=== PATIENT | male | born 1955 | race Caucasian/White ===

== ENCOUNTER 2020-04-21 05:23 | Emergency (ER) | payer MEDICAID, SELFPAY ==
[2020-04-21 05:24] VITALS: BP 152/84; PULSE 109; RESP 35; TEMP 36.7; O2SAT 95; BMI 16.0
--- NOTE | 2020-04-21 05:29 | EKG12_ITS ---
Test Reason : Blood Pressure : / mmHG Vent. Rate : 091 BPM Atrial Rate : 091 BPM P-R Int : 128 ms QRS Dur : 092 ms QT Int : 390 ms P-R-T Axes : 042 068 066 degrees QTc Int : 479 ms Normal sinus rhythm Normal ECG Confirmed by MITCH RICO, FRANCI ([id number]), industrial editor CARLOS ENRIQUE LACY ([id number]) on 04/26/2020 1:00:16 PM Referred By: JUAN JOSE Confirmed By:FRANCI MEYER MD
--- NOTE | 2020-04-21 05:29 | ED.VIS.GEN ---
History of Present Illness Chief Complaint: Shortness of Breath Informant: Patient Narrative: Stated he woke up an hour ago and was laying on his back. He experienced shortness of breath. He stated it is common for him to have this. Normally he lays on his side. He does smoke cigarettes. History of end-stage COPD and emphysema. He is not on home oxygen. He has not had a new cough but has a chronic cough that is dry. No fevers or chills. No coronavirus exposures. EMS was called due to his shortness of breath. He was 90% on room air at that time. He was placed on oxygen and brought here. He does have an inhaler at home. He did use 2 puffs prior to calling EMS with moderate relief. Current severity is moderate. He has had this happen multiple times in the past. He stated he felt fine before bed. Past Medical History - Allergies and Home Meds Allergies/Adverse Reactions: Allergies celecoxib [From Celebrex] Allergy (Verified 08/24/16 16:05) Other Primary Care Physician: Cali Dickinson MD [Primary Care Provider] - Prior records reviewed: Yes Past Medical History: - - COPD emphysema Surgical History: - - Reviewed Smoking Status: Light Smoker (<10/day) Alcohol: None Drugs: None Review of Systems General: Denies: Chills, Fever, Sweats Eyes: Denies: Visual changes - bilaterally, Diplopia ENT: Denies: Rhinorrhea, Sore throat Cardiovascular: Denies: Chest pain, Palpitations Respiratory: Reports: Dyspnea. Denies: Cough, Dyspnea on exertion Gastrointestinal: Denies: Abdominal pain, Nausea, Vomiting, Diarrhea, Melena, Hematochezia Genitourinary: Denies: Dysuria, Hematuria, Frequency Musculoskeletal: Denies: Back pain, Extremity Pain Skin: Denies: Rash, Wounds Neurological: Denies: Headache, Weakness, Numbness Physical Exam Vital Signs/Narrative: Vital Signs Temp Pulse Resp BP Pulse Ox 04/21/20 05:24 98.1 F 109 H 35 H 152/84 H 95 General: Well nourished, Well developed, No Acute Distress Head: Normocephalic, Atraumatic Eyes: Perrl, EOMI ENT: Moist mucous membranes, No rhinorrhea Neck: Supple, Nontender Cardiovascular: Regular rate, Regular rhythm, No murmurs Respiratory: Chest nontender, Wheezing - Fuhs wheezing expiratory throughout all lung tejeda, Diminished, Decreased Air Movement. Negative for: Retractions Abdomen: Soft, Nontender, Nondistended, Normal bowel sounds Back: Nontender, Normal Inspection Extremities: Nontender, No edema Skin: Normal color, No rash Neurological: Alert, Oriented x3, Cranial nerves II-XII grossly intact, Normal Strength, Normal Sensation Psychological: Normal affect, Normal Mood Diagnostic/Tx/Re-eval - Medical Decision Making Placed on oxygen. Given albuterol breathing treatment x3 and Atrovent breathing treatment x1. EKG and chest x-ray obtained.. Chest x-ray shows chronic emphysematous COPD changes. No focal infiltrates. EKG shows sinus rhythm at a rate of 91 with no acute ischemia or arrhythmia. On reevaluation his wheezing has resolved he is resting comfortably. I suspect he had acute bronchospasm tonight on top of chronic COPD. Given a prescription for albuterol nebulizer and albuterol liquid to use at home as well as a short course of prednisone. He has a rescue inhaler to use as needed. I do not feel he needs antibiotics as this was acute bronchospastic event started an hour ago ED Disposition - Plan for ED Patient: Disposition: Home or Assisted Living Diagnosis: Acute bronchospasm, COPD (chronic obstructive pulmonary disease) Instructions: ED COPD Flare Prescriptions: predniSONE tablet 60 mg PO DAILY #15 tab Prescription Printed Albuterol Aerosols [Ventolin Aerosols] 2.5 mg INHALATION Q4H PRN #25 vial Prescription Printed Referrals: Cali Dickinson MD [Primary Care Provider] -
[2020-04-21 05:30] VITALS: O2SAT 98
[2020-04-21] MEDS: Ipratropium/Albuterol Sulfate 3 ML AMPUL.NEB INHALATION (05:44)
[2020-04-21] MEDS: Albuterol 2.5 MG/3 ML VIAL.NEB. INHALATION ×3 (05:44→05:55)
[2020-04-21 05:45] VITALS: PULSE 95; RESP 18; O2SAT 98
[2020-04-21 05:56] VITALS: PULSE 92; RESP 15
--- NOTE | 2020-04-21 06:19 | RAD_ITS ---
STUDY: X-RAY CHEST REASON FOR EXAM: Male, 64 years old. Shortness of breath TECHNIQUE: Frontal view COMPARISON: 08/13/2013 FINDINGS: There is advanced COPD. There are NO infiltrates. There is no demonstrated pleural abnormality. Normal size heart. Normal mediastinum and denis. Normal visualized pulmonary arteries. Normal visualized aortic arch and descending thoracic aorta. Normal visualized thoracic spine. Normal visualized ribs, clavicles, and shoulders. There is no demonstrated abnormality of the visualized soft tissue structures of the upper abdomen. RAD/Chest 1 View (Portable) IMPRESSION: There is advanced COPD. There are NO infiltrates. There is no demonstrated pleural abnormality. Normal size heart. Electronically Signed: Jr June MD at 6:44 EDT , Service support ,
[2020-04-21] MEDS: predniSONE 20 MG Tablet 60 MG PO (06:44)
[2020-04-21 06:50] VITALS: BP 126/78; PULSE 78; RESP 18; O2SAT 98
== END 2020-04-21 06:51 | disposition home or self-care (01) ==
PROVIDERS: Emergency Provider Emergency Medicine; PCP Family Medicine
DX: J98.01 Acute bronchospasm (principal); J44.9 Chronic obstructive pulmonary disease, unspecified; F17.210 Nicotine dependence, cigarettes, uncomplicated; Z88.6 Allergy status to analgesic agent
CPT/HCPCS: 71045; 93005; 94640; 99251; 99285; G0463

== ENCOUNTER 2021-01-12 05:30 | Inpatient (IN) | payer MEDICAID, SELFPAY ==
[2021-01-12] VITALS (40 sets, daily range): BP systolic 39–173; BP diastolic 26–149; PULSE 67–128; RESP 12–40; TEMP 35.6–36.7; O2SAT 64–100; BMI 16.8; BMI 14.3
--- NOTE | 2021-01-12 05:31 | EKG12_ITS ---
Test Reason : SOB Blood Pressure : / mmHG Vent. Rate : 113 BPM Atrial Rate : 113 BPM P-R Int : 122 ms QRS Dur : 088 ms QT Int : 320 ms P-R-T Axes : 056 077 044 degrees QTc Int : 438 ms Sinus tachycardia Possible Lateral infarct , age undetermined Abnormal ECG Confirmed by MITCH RICO, FRANCI ([id number]), editorial writer CARLOS ENRIQUE LACY ([id number]) on 01/15/2021 2:43:52 PM Referred By: WAQAS Confirmed By:FRANCI MEYER MD
--- NOTE | 2021-01-12 05:31 | RAD_ITS ---
HISTORY: sob EXAM: XR Chest 1 View: COMPARISON: April 21, 2020 FINDINGS: # of images incl. paperwork: 1 Pulmonary hyperexpansion. This is consistent with pulmonary emphysema with a posterior peripheral parenchymal pulmonary perfusion. Basilar airspace disease is fairly severe in the left lower lobe with obscuration of the left heart border and the left hemidiaphragm. This is new Heart is not enlarged. No acute osseous pathology perceived. Pulmonary vascularity is distinct. Likely small bilateral pleural effusions. RAD/Chest 1 View (Portable) IMPRESSION: Pulmonary emphysema. New left lower lobe airspace disease with pleural effusions consistent with pneumonia. Underlying malignancy is not excluded.. at 0609 Reported and signed by: Ulises Gunn MD Electronically Signed: Ulises Gunn MD at 6:08 EST Tel , Service support ,
--- NOTE | 2021-01-12 05:32 | ED.DCSUM_ITS ---
History of Present Illness Chief Complaint: Shortness of Breath Informant: Patient Onset: Today Context: Gradual Onset Timing: Continuous Current Severity: Severe Maximum Severity: Severe Narrative: Patient is a 65-year-old male with history of COPD who presents to the emergency department shortness of breath. Patient called EMS this morning because he felt like he cannot catch his breath. On EMS arrival, the patient was then rather significant respiratory distress. He was tachypneic with diminished air movement. He was found to be 67% on room air. IV was established in the field. The patient was placed on a nonrebreather and given a DuoNeb treatment, albuterol, and IM epi. On arrival, the patient is still tachypneic but is moving more air. He answers questions in 1-2 word sentences. He denies chest pain. He denies fevers or chills. He has had a scant cough. Prior similar symptoms: Yes Recent Illness/Hospitalization: No Past Medical History - Allergies and Home Meds Allergies/Adverse Reactions: Allergies celecoxib [From Celebrex] Allergy (Verified 01/12/21 05:36) Other Prior records reviewed: Yes Past Medical History: - - COPD Surgical History: - - Reviewed Smoking Status: Light Smoker (<10/day) Review of Systems General: Denies: Chills, Fever, Sweats Eyes: Denies: Visual changes - bilaterally, Diplopia ENT: Denies: Rhinorrhea, Sore throat Cardiovascular: Denies: Chest pain, Palpitations Respiratory: Reports: Dyspnea, Cough. Denies: Dyspnea on exertion Gastrointestinal: Denies: Abdominal pain, Nausea, Vomiting, Diarrhea, Melena, He matochezia Genitourinary: Denies: Dysuria, Hematuria, Frequency Musculoskeletal: Denies: Back pain, Extremity Pain Skin: Denies: Rash, Wounds Neurological: Denies: Headache, Weakness, Numbness Physical Exam Inital Vital Signs reviewed: Yes General: Well nourished, Well developed, No Acute Distress Head: Normocephalic, Atraumatic Eyes: Perrl, EOMI ENT: Moist mucous membranes, No rhinorrhea Neck: Supple, Nontender Cardiovascular: Regular rate, Regular rhythm, No murmurs Respiratory: Chest nontender, Wheezing, Decreased Air Movement, Retractions Abdomen: Soft, Nontender, Nondistended, Normal bowel sounds Back: Nontender, Normal Inspection Extremities: Nontender, No edema Skin: Normal color, No rash Neurological: Alert, Oriented x3, Cranial nerves II-XII grossly intact, Normal Strength, Normal Sensation Psychological: Normal affect, Normal Mood Diagnostic/Tx/Re-eval Clinical Impression(s) from Imaging Studies Chest X-Ray 01/12/21 05:31 IMPRESSION: Pulmonary emphysema. New left lower lobe airspace disease with pleural effusions consistent with pneumonia. Underlying malignancy is not excluded.. at 0609 Reported and signed by: Ulises Gunn MD Electronically Signed: Ulises Gunn MD at 6:08 EST Tel , Service support , Abnormal Lab Results 01/12/21 01/12/21 01/12/21 05:36 05:36 05:36 WBC 15.1 H RBC 4.83 Hgb 15.0 Hct 45.4 MCV 94.0 MCH 31.1 MCHC 33.0 RDW Std Deviation 53.3 H RDW Coeff of Milvia 15.4 H Plt Count 307 MPV 10.3 Immature Gran % (Auto) 0.300 Neut % (Auto) 92.4 H Lymph % (Auto) 3.3 L Duval % (Auto) 3.8 Eos % (Auto) 0.1 Baso % (Auto) 0.1 Absolute Neuts (auto) 14.0 H Absolute Lymphs (auto) 0.50 L Nucleated RBC % 0 Differential Comment SCANNED Sodium 135 L Potassium 4.4 Chloride 98 Carbon Dioxide 23.0 Anion Gap 14 BUN 75 H Creatinine 4.25 H Estim Creat Clear Calc 12.84 Est GFR (MDRD) Af Amer 18 L Est GFR (MDRD) Non-Af 15 L BUN/Creatinine Ratio 17.6 Glucose 104 Lactic Acid 2.9 H* Calcium 8.3 L Total Bilirubin 0.70 AST 16 ALT < 6 L Alkaline Phosphatase 123 H Troponin I < 0.015 Total Protein 6.6 Albumin 2.4 L Globulin 4.2 Albumin/Globulin Ratio 0.6 L - Rhythm Strip Rhythm Strip: Sinus Tach Rate: 120 Ectopy: None - EKG Initial EKG Interpretation: No Acute Injury Pattern, Sinus Tachycardia Prior: Unchanged - Medical Decision Making Patient presents with acute respiratory distress. He is diminished air motion and rhonchi in his left base. He was on nonrebreather but was transitioned quickly to BiPAP. With BiPAP and nebulized treatments, the patient's respiratory status did improve. Patient does have leukocytosis, acute kidney injury, lactic acidosis. He was covered with broad-spectrum antibiotics and fluid resuscitated. Chest x-ray was obtained. Was reviewed by both myself and the radiologist. He does have a large left lower lobe infiltrate. I do have concern the may be underlying malignancy and this could be postobstructive. However, given the patient's tenuous respiratory status I did not feel that sending for CT at this time would be of any benefit. The patient's respiratory status continues stabilized with pressure support. I did discuss this with the steel handler and with the hospitalist. He will be admitted at this time. Impression 1. Acute respiratory failure 2. Left lower lobe pneumonia 3. Severe sepsis - Critical Care Time Critical care time (excluding procedures): 30-74 minutes, Discussing w/Patient &/or Family/Clinical Staff Anesthesiologist, Discussing w/Consultants, Arranging Admission or Transfer, Performing Direct Patient Care at Bedside ED Disposition - Plan for ED Patient:
--- NOTE | 2021-01-12 05:38 | ED.RN ---
PLACED ON BIPAP BY RT.
[2021-01-12 05:45] LABS: Basophil# 0.02 X10^3/uL; Basophil% 0.1 % (0-1); Eosinophil# 0.01 X10^3/uL; Eosinophils% 0.1 % (0-5); Hematocrit 45.4 % (40-54); Lymphocyte % 3.3 % (19-41); Mean Corpuscular Hgb 31.1 pg (27.0-32.0); Mean Platelet Vol. 10.3 fl (6.2-12.0); Monocyte# 0.58 X10^3/uL; Monocyte% 3.8 % (0-10); NRBC Flagged by Analyzer 0 % (0-5); Neutrophil # 13.97 X10^3/uL (2.7-7.7); Neutrophil % 92.4 % (47-70); POSITIVE DIFFERENTIAL YES; POSITIVE MORPHOLOGY YES; Platelet Count 307 K/mm3 (150-450); RBC Distribution Width CV 15.4 % (11.6-14.6); RBC Distribution Width SD 53.3 fl (35.1-43.9); Red Blood Count 4.83 M/mm3 (4.6-6.2); White Blood Count 15.1 K/mm3 (4.4-11.0)
[2021-01-12 05:49] LABS: Differential Indicated SCAN CRITERIA MET
[2021-01-12] MEDS: 0.9% Normal Saline 1,000 ML 999 ML IV ×3 (05:59→10:00)
[2021-01-12] MEDS: Albuterol 2.5 MG/3 ML VIAL.NEB. INHALATION ×3 (06:00→06:10)
[2021-01-12 06:04] LABS: ALB/GLOB Ratio 0.6 RATIO (0.9-2.4); AST(SGOT) 16 U/L (15-37); Alanine Aminotransfer ALT/SGPT < 6 U/L (16-61); Albumin, Serum 2.4 g/dL (3.2-5.0); Alkaline Phosphatase 123 U/L (45-117); Anion Gap 14 (5-15); BUN 75 mg/dL (7-18); BUN/Creat Ratio 17.6 RATIO (10-20); Calcium,Total 8.3 mg/dL (8.5-10.1); Chloride 98 mmol/L (98-107); Creatinine, Serum 4.25 mg/dL (0.70-1.30); EST Glomerular Filtration Rate 15 mL/min (>60); Est Glom Filt Rate - Afr Amer 18 mL/min (>60); Estimated Creatinine Clearance 12.84 ml/min; Globulin 4.2 g/dL (2.2-4.2); Glucose 104 mg/dL (74-106); Potassium 4.4 mmol/L (3.5-5.1); Protein, Total 6.6 g/dL (6.4-8.2); Sodium Level 135 mmol/L (136-145)
[2021-01-12 06:14] LABS: Lactic Acid 2.9 mmol/L (0.4-1.9)
[2021-01-12 06:16] LABS: Differential Comment SCANNED
--- NOTE | 2021-01-12 06:23 | PCM.HP.STD ---
Problem List (1) Severe sepsis Status: Acute (2) COPD (chronic obstructive pulmonary disease) Status: Acute (3) MIL (acute kidney injury) Status: Acute History of Present Illness Date of Admission: 01/12/21 Chief Complaint: shortness of breath The patient is a 65 year old M a with history of COPD; and tobacco abuse. Patient is not on home oxygen. The patient has had increasing shortness of breath over the past 3 days. Per his , he has been using his nebulizers and inhalers more frequently. Overnight, he had 2 episodes of emesis. He began to have more shortness of breath. EMS was called. On squad arrival, the patient was 67% on room air with tachypnea. IV was established. He was given Solu-Medrol and nebulized breathing treatments. He was placed on nonrebreather by EMS. In the emergency department, he was transitioned to BiPAP. The patient was given more nebulized breathing treatments. Patient does have leukocytosis, elevated lactic acid, and evidence of elevated creatinine. Chest x-ray showed a left lower lobe infiltrate. The patient was covered with broad-spectrum antibiotics. His rapid Covid antigen was negative. Past Medical History Medical History: Medical History (Last Updated 01/12/21 @ 07:[address] Surja Lee MD) COPD (chronic obstructive pulmonary disease) J44.9 Allergies celecoxib [From Celebrex] Allergy (Verified 01/12/21 05:36) Other Home Medications: Ambulatory Orders Medication Instructions Recorded Loratadine [Claritin] 10 mg PO DAILY 08/13/13 Montelukast [Singulair] 10 mg PO DAILY 08/13/13 Albuterol IH (ProAir) [Proair Hfa 1 puff INHALATION Q6H PRN PRN 08/24/16 (SP)Vent Pts] Budesonide/Formoterol 160/4.5 2 puff INHALATION BID 08/24/16 [Symbicort 160/4.5 Mcg Inhaler (SP)] Fluticasone 0.05% [Flonase Nasal 2 spray NASAL DAILY 08/24/16 [place]] Ibuprofen 600 mg PO 4X/DAY PRN 08/24/16 Ipratropium [Atrovent] 0.25 mg INHALATION 4X/DAY 08/24/16 Naproxen 375 mg PO Q6H PRN PRN 08/24/16 Simvastatin [Zocor] 40 mg PO QHS 08/24/16 cycloBENZAPRine HCl [Flexeril] 10 mg PO TID PRN #20 tablet 08/24/16 Albuterol Aerosols [Ventolin 2.5 mg INHALATION Q4H PRN #25 vial 04/21/20 Aerosols] Surgical History: - - Tympanostomy tube placed in ears Smoking Status: Current every day smoker - said patient quit smoking a day before presentation. Tobacco Use: Cigarettes - *Family History Maternal History Items: Heart Disease, Pulmonary Disease Paternal History Items: COPD Review of Systems Constitutional: Denies: Chills, Fever, Weight Change HEENT: Denies: Head Aches, Sinus Congestion, Sinus Drainage Cardiovascular: Denies: Chest Pain, Palpitations Respiratory: Reports: Cough, Shortness of Breath, Sputum production Gastrointestinal: Reports: Nausea, Vomiting. Denies: Abdominal Pain Genitourinary: Denies: Dysuria Musculoskeletal: Denies: Joint Pain, Joint Tenderness Skin: Denies: Rash, Wounds Neurological: Denies: Numbness, Tingling, Focal weakness Psychiatric: Denies: Anxiety, Depression, Homicidal Ideations, Suicidal Ideations Hematologic/ Lymphatic: Denies: Easy Bruising, Easy Bleeding VTE Information - Inpt Only VTE Present on Admission: No VTE Mechan Device Prophylaxis: None VTE Pharm Prophylaxis ordered?: Yes Patient Problems: Active and Suspected Problems (Last Updated 01/12/21 @ 07:[address] Suraj Lee MD) Severe sepsis (Acute) COPD (chronic obstructive pulmonary disease) (Acute) MIL (acute kidney injury) (Acute) - Physical Exam Vitals/I&O's: Vital Signs Temp Pulse Resp BP Pulse Ox 97.7 F L 111 H 30 H 91/63 96 01/12/21 05:50 01/12/21 06:21 01/12/21 06:21 01/12/21 06:21 01/12/21 06:21 Oxygen Flow Rate (L/min) 30 Oxygen Delivery Method Bi-pap Weight: 51.7 kg Body Mass Index (BMI) 16.8 General: Alert, Oriented x3, Cooperative HEENT: Atraumatic, Normocephalic Neck: Supple, Trachea Midline Lungs: Diminished, Tachypneic, Wheezes Cardiovascular: Regular rate, Normal S1, Normal S2, Tachycardic Abdomen: Bowel Sounds Present, Soft, Non Tender Extremities: No edema, Capillary Refill Less than 3 Seconds Skin: No rashes, No breakdown Musculoskeletal: No Tenderness to Palpation of Joints or Extremities, Cachexia, Muscle Wasting Neurological: Cranial nerves II-XII grossly intact Psych/Mental Status: Anxious Microbiology Past 72 Hours 01/12/21 05:36 Mucosa - Nose SARS-CoV-2 Antigen (Rapid) - Final Laboratory Results 01/12/21 05:36: WBC 15.1 H, RBC 4.83, Hgb 15.0, Hct 45.4, MCV 94.0, MCH 31.1, MCHC 33.0, RDW Std Deviation 53.3 H, RDW Coeff of Milvia 15.4 H, Plt Count 307, MPV 10.3, Immature Gran % (Auto) 0.300, Neut % (Auto) 92.4 H, Lymph % (Auto) 3.3 L, Iron % (Auto) 3.8, Eos % (Auto) 0.1, Baso % (Auto) 0.1, Absolute Neuts (auto) 14.0 H, Absolute Lymphs (auto) 0.50 L, Nucleated RBC % 0, Differential Comment SCANNED 01/12/21 05:36: Sodium 135 L, Potassium 4.4, Chloride 98, Carbon Dioxide 23.0, Anion Gap 14, BUN 75 H, Creatinine 4.25 H, Estim Creat Clear Calc 12.84, Est GFR (MDRD) Af Amer 18 L, Est GFR (MDRD) Non-Af 15 L, BUN/Creatinine Ratio 17.6, Glucose 104, Calcium 8.3 L, Total Bilirubin 0.70, AST 16, ALT < 6 L, Alkaline Phosphatase 123 H, Troponin I < 0.015, Total Protein 6.6, Albumin 2.4 L, Globulin 4.2, Albumin/Globulin Ratio 0.6 L 01/12/21 05:36: Lactic Acid 2.9 H* 01/12/21 05:36: B-Natriuretic Peptide Pending Current Medications Albuterol Sulfate (Albuterol 2.5 Mg/3 Ml Vial.Neb.) 2.5 mg INHALATION Q20M JOVAN Stop: 01/12/21 06:26 Last Admin: 01/12/21 06:10 Dose: 2.5 mg Documented by: Sodium Chloride () 1,000 mls @ 999 mls/hr IV .Q1H1M ONE Stop: 01/12/21 06:54 Last Admin: 01/12/21 05:59 Dose: 999 mls/hr Documented by: Piperacillin Sod/Tazobactam (Sod 2,250 mg/ Sodium Chloride) 61.25 mls @ 100 mls/hr IV X1 ONE Stop: 01/12/21 06:51 Sodium Chloride () 1,000 mls @ 999 mls/hr IV .Q1H1M ONE Stop: 01/12/21 07:11 Vancomycin HCl 750 mg/ Sodium (Chloride) 265 mls @ 250 mls/hr IV X1 ONE Stop: 01/12/21 07:33 Assessment/Plan All Active Problems (Last Updated 01/12/21 @ 07:[address] Suraj Lee MD) Severe sepsis (Acute) COPD (chronic obstructive pulmonary disease) (Acute) MIL (acute kidney injury) (Acute) The patient is a 65 year old M a with history of tobacco abuse; COPD not on home oxygen who presented with increasing shortness of breath over the past 3 days; productive cough; nausea and vomiting; and wheezing was found to be severely hypoxic. Severe sepsis secondary to pneumonia Impression of chest x-ray by radiologist: Pulmonary emphysema. New left lower lobe airspace disease with pleural effusion consistent with pneumonia. Underlying malignancy is not excluded. Actual chest x-ray was independently interpreted. I agree with radiologist interpretation. Respiratory rate in the 30s; heart rates in the 100s. White count of 15.1 with neutrophilic predominance and lymphopenia. Sodium 135. Lactic acid 2.9. Trend lactic acid. Blood culture ?2 is obtained at emergency department. Follow results. Rapid Covid screen is negative. Obtain PCR Covid. Respiratory Gram stain and culture pending Antibiotics: Started on vancomycin and Zosyn at emergency department and continued. IV hydration: Received normal saline bolus at emergency department. Normal saline at maintenance infusion rate ordered. DuoNeb scheduled. Albuterol as needed Legionella antigen screen and Strep antigen ordered Consider further imaging when patient is more stable to rule out cancer. COPD exacerbation Received Solu-Medrol from paramedics. Schedule Solu-Medrol ordered. Trend CBC and BMP. Zofran as needed. Continue BiPAP started in the emergency department. N.p.o. until patient can tolerate coming off BiPAP. Severe protein calorie malnutrition Patient with cachexia and muscle wasting. BMI of 16.8. When patient is more stable consider nutrition supplements. Dietitian consult. Hyponatremia Sodium 135 on presentation. Mild. Like secondary pulmonary disease Treat pneumonia. IV hydration. MIL/dehydration Creatinine of 4.5 on presentation Review of community records showed that in 2019 his creatinine was 0.99 and in 2017 his creatinine is 1.1. BUN is 75. Likely dehydration from insensible water loss from increased work of breathing. Prerenal and trending to intrinsic renal with ATN. Received normal saline bolus at emergency department. Normal saline at maintenance rate ordered. DVT prophylaxis Subcutaneous heparin ordered. Lovenox not ordered since patient has acute kidney injury. Inpatient E&M: [id number] Init Hosp L3
[2021-01-12] MEDS: Ondansetron 4 MG/2 ML Vial IV (06:28)
--- NOTE | 2021-01-12 06:46 | NURSING ---
[id number] dr cade resp failure
[2021-01-12 07:16] LABS: BNP,B-Type NATRIURETIC PEPTIDE 40.2 pg/mL (0-100)
[2021-01-12] MEDS: Haloperidol Lactate 5 MG/ML Vial IV (08:00)
--- NOTE | 2021-01-12 08:46 | PCM.RX.CS ---
Consult Pharmacy has been consulted to manage selected antiobiotic: Vancomycin Type of Consult: New start Suspected Infection: Sepsis, Pneumonia Prior Doses of Antibiotics Received/Current Regimen: 750MG X1 IN E.R. starting at 07:12 today Labs: Sodium 135 mmol/L (136-145) L 01/12/21 05:36 Potassium 4.4 mmol/L (3.5-5.1) 01/12/21 05:36 Chloride 98 mmol/L (98-107) 01/12/21 05:36 Carbon Dioxide 23.0 mmol/L (21.0-32.0) 01/12/21 05:36 Anion Gap 14 (5-15) 01/12/21 05:36 BUN 75 mg/dL (7-18) H 01/12/21 05:36 Creatinine 4.25 mg/dL (0.70-1.30) H 01/12/21 05:36 Est GFR (MDRD) Af Amer 18 mL/min (>60) L 01/12/21 05:36 Est GFR (MDRD) Non-Af 15 mL/min (>60) L 01/12/21 05:36 BUN/Creatinine Ratio 17.6 RATIO (10-20) 01/12/21 05:36 Glucose 104 mg/dL (74-106) 01/12/21 05:36 Microbiology: Microbiology 01/12/21 05:36 Mucosa - Nose SARS-CoV-2 Antigen (Rapid) - Final Weight used for dosin.8 kg Estimated Creatinine Clearance: 12.8ml/min Goal Trough: 15-20 mcg/mL Pharmacy Plan for Drug Dosing: As noted above, the patient received a dose in E.R. today so since the patient's CrCl is <20, no more doses will be needed today. Will order a vanc random level to be drawn tomorrow with AM labs and further dosing will be evaluated at that time. Pharmacy Service will continue to monitor and adjust dosing as required. Follow-Up Labs: Trough Vancomycin - random level Labs to be done on [date and time ordered]: 01/13/21 with AM labs
[2021-01-12] MEDS: 0.9% Normal Saline 1,000 ML 100 ML IV ×2 (09:34→12:00)
--- NOTE | 2021-01-12 09:35 | CON.PCM_ITS ---
Problem List (1) Pneumonia Status: Acute Qualifiers: Pneumonia type: due to unspecified organism Laterality: left Lung location: lower lobe of lung Qualified Code(s): J18.9 - Pneumonia, unspecified organism (2) Acute respiratory failure with hypoxia Status: Acute (3) Severe sepsis Status: Acute (4) COPD (chronic obstructive pulmonary disease) Status: Acute (5) MIL (acute kidney injury) Status: Acute Reason for Consult Date of Consultation: 01/12/21 Reason for Consultation: Respiratory failure History of Present Illness: The patient is a 65 year old M, with past medical history listed below, who presented to [facility] on 01/12/2021 secondary to progressive shortness of breath. Patient reportedly has had progressive shortness of breath over the last week. Discussed with patient's and she stated that 2 days ago he started to get real bad and was not taking much by mouth. EMS was called this morning secondary to his tachypnea and was found to be 67% on room air. Patient's reported that he had attempted using nebulizers frequently without response. EMS had tried a DuoNeb, albuterol and IM epinephrine, but patient continued to have severe conversational dyspnea. Patient had denied any chest pain, fevers or chills. Patient had reported a scant cough. In the ER, patient had a chest x-ray showing significant hyperinflation with a left lower lobe infiltrate. Laboratory work-up showed a leukocytosis of 15.1, hemoglobin of 15, bicarbonate of 23, BUN of 75 and creatinine of 4.25. Lactate was elevated at 2.9. Liver functions were within normal range. Patient was placed on BiPAP therapy with some improvement in respiratory distress. Patient was then transferred to the intensive care unit for further evaluation following antibiotics and fluid resuscitation with 2 L of IV fluids. Since being in the intensive care unit, patient has had some improvement. Patient arrived with a tripod position refusing to lie backwards. Patient was given some Haldol with some improvement. Patient was also switched to AVAPS with some improvement in respiratory effort. Blood pressures have been marginal, but no pressors have been required. Patient is receiving a fluid bolus. Multiple attempts at ABGs have been unsuccessful. Review of systems was partially obtained from the patient, but most information came by calling the . Patient reportedly has had decreased p.o. intake and weight loss over the last 2 to 3 months. Patient did not reported any chest pain, but has always been skinny. Patient's reports they have done everything to try to fat him up without success. No hemoptysis has been reported. Patient was seen by Dr. Bowles approximately 13 years ago. Patient's confirmed the patient's report that he is a DNR Comfort Care arrest without intubation. Review of systems otherwise negative from a constitutional, HEENT, respiratory, cardiovascular, GI, genitourinary, musculoskeletal, skin, neurologic, psychiatric and hematologic system unless stated above. Past Medical History Medical History: Medical History (Last Updated 01/12/21 @ 07:[address] Suraj Lee MD) COPD (chronic obstructive pulmonary disease) J44.9 Allergies celecoxib [From Celebrex] Allergy (Verified 01/12/21 05:36) Other Home Medications: Ambulatory Orders Medication Instructions Recorded Loratadine [Claritin] 10 mg PO DAILY 08/13/13 Montelukast [Singulair] 10 mg PO DAILY 08/13/13 Albuterol IH (ProAir) [Proair Hfa 1 puff INHALATION Q6H PRN PRN 08/24/16 (SP)Vent Pts] Budesonide/Formoterol 160/4.5 2 puff INHALATION BID 08/24/16 [Symbicort 160/4.5 Mcg Inhaler (SP)] Fluticasone 0.05% [Flonase Nasal 2 spray NASAL DAILY 08/24/16 Decherd] Ibuprofen 600 mg PO 4X/DAY PRN 08/24/16 Ipratropium [Atrovent] 0.25 mg INHALATION 4X/DAY 08/24/16 Naproxen 375 mg PO Q6H PRN PRN 08/24/16 Simvastatin [Zocor] 40 mg PO QHS 08/24/16 cycloBENZAPRine HCl [Flexeril] 10 mg PO TID PRN #20 tablet 08/24/16 Albuterol Aerosols [Ventolin 2.5 mg INHALATION Q4H PRN #25 vial 04/21/20 Aerosols] Surgical History: - - Tympanostomy tube placed in ears Smoking Status: Current every day smoker Tobacco Use: Cigarettes - *Family History Maternal History Items: Heart Disease, Pulmonary Disease Paternal History Items: COPD Review of Systems Comment: See HPI Patient Problems: Active and Suspected Problems (Last Updated 01/12/21 @ 07:[address] Suraj Lee MD) Severe sepsis (Acute) COPD (chronic obstructive pulmonary disease) (Acute) MIL (acute kidney injury) (Acute) Objective: All imaging was personally reviewed. Chest x-ray shows an infiltrate in the left lower lobe with significant hyperinflation. There does appear to be a small pleural effusion. No definitive mass is noted. There are no pulmonary function tests or echocardiogram available for review. - Physical Exam Vitals/I&O's: Vital Signs Temp Pulse Resp BP Pulse Ox 35.9 C L 112 H 28 H 87/51 L 94 01/12/21 07:13 01/12/21 08:15 01/12/21 08:15 01/12/21 08:15 01/12/21 08:15 Oxygen Flow Rate (L/min) 40 Oxygen Delivery Method Bi-pap Weight: 51.8 kg Body Mass Index (BMI) 14.3 Intake and Output for Last 24 Hours 01/10/21 01/11/21 01/12/21 23:59 23:59 23:59 Intake Total 2561.25 / 2561.25 Balance 2561.25 / 2561.25 General: Alert, Cooperative, - - Cachectic. Severe conversational dyspnea despite BiPAP therapy. Good BiPAP synchrony. HEENT: Atraumatic, PERRLA, EOMI, Normocephalic, - - Some temporal wasting noted Oral: No Gingival or Mucosal Lesions/ Ulcerations, Dry Mucosa Neck: Supple, No JVD, No Nodes, Trachea Midline Lungs: No rales, Diminished - Severely, Rhonchi - Left base, Wheezes Cardiovascular: Normal S1, Normal S2, No murmurs, No rub noted, No Gallop, T achycardic Abdomen: Bowel Sounds Present, Soft, Non Tender, Non-Distended Extremities: No cyanosis, No edema, Capillary Refill Less than 3 Seconds, Cl ubbing - Stage III Skin: No rashes, No breakdown Musculoskeletal: No Tenderness to Palpation of Joints or Extremities, Cachexia, Muscle Wasting Lymphatic: No Cervical, Supraclavicular, or Inguinal Adenopathy Neurological: Cranial nerves II-XII grossly intact, Neuro grossly intact, Motor Exam 5/5 strength throughout Psych/Mental Status: Anxious, Restless Microbiology Past 72 Hours 01/12/21 05:36 Mucosa - Nose SARS-CoV-2 Antigen (Rapid) - Final Laboratory Results 01/12/21 05:36: WBC 15.1 H, RBC 4.83, Hgb 15.0, Hct 45.4, MCV 94.0, MCH 31.1, MCHC 33.0, RDW Std Deviation 53.3 H, RDW Coeff of Milvia 15.4 H, Plt Count 307, MPV 10.3, Immature Gran % (Auto) 0.300, Neut % (Auto) 92.4 H, Lymph % (Auto) 3.3 L, Green % (Auto) 3.8, Eos % (Auto) 0.1, Baso % (Auto) 0.1, Absolute Neuts (auto) 14.0 H, Absolute Lymphs (auto) 0.50 L, Nucleated RBC % 0, Differential Comment SCANNED 01/12/21 05:36: Sodium 135 L, Potassium 4.4, Chloride 98, Carbon Dioxide 23.0, Anion Gap 14, BUN 75 H, Creatinine 4.25 H, Estim Creat Clear Calc 12.84, Est GFR (MDRD) Af Amer 18 L, Est GFR (MDRD) Non-Af 15 L, BUN/Creatinine Ratio 17.6, Glucose 104, Calcium 8.3 L, Total Bilirubin 0.70, AST 16, ALT < 6 L, Alkaline Phosphatase 123 H, Troponin I < 0.015, Total Protein 6.6, Albumin 2.4 L, Globulin 4.2, Albumin/Globulin Ratio 0.6 L 01/12/21 05:36: Lactic Acid 2.9 H* 01/12/21 05:36: B-Natriuretic Peptide 40.2 Current Medications Albuterol Sulfate (Albuterol 2.5 Mg/3 Ml Vial.Neb.) 2.5 mg INHALATION Q2H PRN PRN PRN Reason: sob/wheezing Albuterol/Ipratropium (Ipratropium/Albuterol Sulfate 3 Ml Ampul.Neb) 3 ml INHALATION Q4HWA.RT JOVAN Heparin Sodium (Porcine) (Heparin Injection (Vial) 5,000 Unit/Ml Vial) 5,000 unit SC Q8 JOVAN Sodium Chloride () 1,000 mls @ 100 mls/hr IV .Q10H JOVAN Vancomycin IV Pharmacy to Dose (1 ea/ Sodium Chloride) 500 mls @ 250 mls/hr IV X1 PRN; Protocol PRN Reason: Rx to Dose Piperacillin Sod/Tazobactam (Sod 3.375 gm/ Sodium Chloride) 50 mls @ 12.5 mls/hr IV Q12 JOVAN Methylprednisolone (Methylprednisolone 40 Mg/Ml Vial) 40 mg IV Q8 JOVAN Ondansetron HCl (Ondansetron 4 Mg/2 Ml Vial) 4 mg IV Q8H PRN PRN PRN Reason: NAUSEA/VOMITING Sodium Chloride (0.9% Saline Lock 10 Ml Syringe) 10 - 40 ml IV UD PRN PRN Reason: SALINE FLUSH Clinical Impression(s) from Imaging Studies Chest X-Ray 01/12/21 05:31 IMPRESSION: Pulmonary emphysema. New left lower lobe airspace disease with pleural effusions consistent with pneumonia. Underlying malignancy is not excluded.. at 0609 Reported and signed by: Ulises Gunn MD Electronically Signed: Ulises Gunn MD at 6:08 EST Tel , Service support , Assessment/Plan Active and Suspected Problems (Last Updated 01/12/21 @ 07:[address] Suraj Lee MD) Severe sepsis (Acute) COPD (chronic obstructive pulmonary disease) (Acute) MIL (acute kidney injury) (Acute) RECOMMENDATIONS: 1. Continue antibiotics, steroids and bronchodilators 2. Transition BiPAP to AVAPS 3. Change CODE STATUS to DNR Comfort Care arrest no intubation 4. Monitor blood pressures. Cannot exclude need for pressor agents 5. Possible CT scan of the chest once hemodynamically stable 6. Aggressive fluid resuscitation with monitoring of urine output 7. Consult PT/OT and dietitian IMPRESSIONS: 1. Acute hypoxic respiratory failure secondary to left lower lobe pneumonia in the setting of advanced COPD Patient with severe hyperinflation on chest x-ray. This is complicated by left lower lobe infiltrate. This does appear somewhat fibrotic, but this may be secondary to advanced emphysematous changes. Patient is appropriately on antibiotics, steroids and bronchodilators. Patient and the understand that he is critical and are clear that he would not want to be intubated. We will continue with AVAPS for now. We will hold off on a blood gas as intubation is not an option at this time. Patient's respiratory demand may improve after lactic acidosis is addressed. 2. Severe sepsis secondary to pneumonia Patient's blood pressures have been marginal thus far. Patient may require fluid bolus plus or minus pressors at this point. Cultures have been taken. We will continue with broad-spectrum antibiotics pending culture data. 3. Severe protein calorie malnutrition Unclear if patient's low weight is secondary to occult malignancy versus pulmonary cachexia. Patient is n.p.o. secondary to respiratory status at this time, but would benefit from a dietitian consultation with augmentation of diet. 4. Acute kidney injury No baseline creatinine is available at this time. BUN to creatinine ratio would be suggestive of a prerenal etiology. Anticipate aggressive volume resuscitation and reevaluate. Monitor urine output closely. Patient would be a poor candidate for renal replacement therapy. 5. 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 Unclear if patient has hypovolemic hyponatremia. SIADH would be consistent with a possible lung ca ncer. Will attempt to address acute issues prior to work-up for any lung cancer. Patient is very clear that he does not want to be intubated for any reason. CODE STATUS was changed accordingly. TIME: 40 minutes critical care time spent addressing patient's acute hypoxic respiratory failure, severe sepsis, acute kidney injury, review of all data and collaboration with care team (8 AM to 9:45 AM) [id number]: [id number] Critical care first hour
[2021-01-12 09:45] LABS: Reflex Lactate? Y
[2021-01-12 10:32] LABS: Lactic Acid 2.7 mmol/L (0.4-1.9)
[2021-01-12] MEDS: Ipratropium/Albuterol Sulfate 3 ML AMPUL.NEB INHALATION ×3 (10:41→18:44)
[2021-01-12 10:56] LABS: Allen Test Positive; Base Excess -9 mmol/L (-2 to +2); Bicarbonate 18.5 mmol/L (22-26); Blood Gas Specimen Type ART; FI02 60; Mode BiLevel; O2 Delivery Device BiPAP; PEEP 8; PO2 95 mmHG (75-100); RR 12; SITE R Radial; SO2 96 % (95-99); Total Carbon Dioxide 20 mmol/L; Vt 450; pCO2 45.9 mmHg (35-45); pH 7.21 (7.35-7.45)
--- NOTE | 2021-01-12 11:30 | CASEMGMT ---
HEBERT ZHENG called for initial transition planning/care coordination assessment as patient is on BiPap continuously. HEBERT ZHENG introduced self and role at [facility]. Crystal willing to participate in assessment and is able to answer all questions appropriately. Care providers, pharmacy, and demographics verified. wishes for patient to discharge home will monitor for need pending course of treatment and progress with therapy. Patient states he has no further needs or concerns at this time. CM to follow for discharge planning needs that may arise. PCP: Alok Specialists: none Preferred Pharmacy: none Insurance: [employer] Prescription Benefit: yes Living Will/HPOA: none LNOK: Living Arrangements: Patient lives with in a 2 story home with access for bed and bath on first floor if needed. states patient is independent at home and drives Transportation: self/family, does not drive. DME/HHC: Patient has shower chair, grab bars, and nebulizer x2. does not want [employer] for DME. HEBERT ZHENG review DME agencies from [employer] over the phone with and she would prefer [facility] for DME needs. state patient quit smoking cigarettes the previous day but before quitting was smoking 1 ppd and has smoked since he was 15. denies alcohol or other drug use. Disposition Plan: Patient to discharge home with family support and follow-up plans in place. Will monitor for need for HHC and DME pending course of treatment and progress with therapy. Giulia SOLER, RN, CM
--- NOTE | 2021-01-12 12:16 | CASEMGMT ---
HEBERT ZHENG NOTE: Pt qualifies for a Palliative referral per the [facility] palliative screening tool at this time. Dr Hayes made aware and states ok for Palliative c/s at this time. Order placed. Call placed to Lucy @ Palliative and updated on referral at this time. Face Sheet faxed to Palliative at this time. Naga SOLER RN CM
[2021-01-12] MEDS: Heparin Injection (Vial) 5,000 UNIT/ML VIAL 5000 UNIT SC (14:48)
[2021-01-12 17:54] LABS: International Normalized Ratio 1.1; Prothrombin Time (Protime)PT. 13.6 SECONDS (11.7-14.9)
[2021-01-12 17:55] LABS: Partial Thromboplast Time 29.7 Seconds (24.1-36.2)
[2021-01-12 19:11] LABS: Bedside Glucose 100 mg/dL (70-110)
--- NOTE | 2021-01-12 19:29 | CPS ---
Pt.'s FiO2 increased to 100%; significant drop in SpO2
[2021-01-12] MEDS: Morphine 2 MG/ML Syringe 1 MG IV (20:53)
[2021-01-12] MEDS: LORazepam 2 MG/ML Syringe 1 MG IV (20:54)
--- NOTE | 2021-01-12 21:15 | NURSING ---
Family choose to make patient at [facility], patient was given 1mg of Ativan and 1mg of Morphine and placed on 2L NC. Patient passed with family at bedside at 21:[address] Lee was at bedside right after patient passed.
--- NOTE | 2021-01-12 21:18 | EXP.PCM_ITS ---
Preliminary Cause of Septic shock secondary to pneumonia Date of Admission: 01/12/21 Date of : 01/12/21 - Principle Diagnosis Septic Shock from pneumonia Problem List: Active Problems (Last Updated 01/12/21 @ 07:[address] Suraj Lee MD) Septic Shock(Acute) COPD (chronic obstructive pulmonary disease) (Acute) MIL (acute kidney injury) (Acute) Pneumonia (Acute) Acute respiratory failure with hypoxia (Acute) Hospital Course hpi: The patient is a 65 year old M a with history of COPD; and tobacco abuse. Patient is not on home oxygen. The patient has had increasing shortness of breath over the past 3 days. Per his , he has been using his nebulizers and inhalers more frequently. Overnight, he had 2 episodes of emesis. He began to have more shortness of breath. EMS was called. On squad arrival, the patient was 67% on room air with tachypnea. IV was established. He was given Solu- Medrol and nebulized breathing treatments. He was placed on nonrebreather by EMS. In the emergency department, he was transitioned to BiPAP. The patient was given more nebulized breathing treatments. Patient does have leukocytosis, elevated lactic acid, and evidence of elevated creatinine. Chest x-ray showed a left lower lobe infiltrate. The patient was covered with broad-spectrum antibiotics. His rapid Covid antigen was negative. Hospital course: Patient was admitted to the intensive care unit. He received vancomycin; and Zosyn for antibiotics. Further he received steroids and breathing treatments. He was on BiPAP which was transitioned to AVAPS. Patient became hypotensive and received IVF per Septic shock protocol. His blood pressure continued to decrease and he was started on Pressors. Family came to see patient and withdrew care. Patient was placed on comfort care measures with as needed Ativan and as needed morphine both of which he received. AVAPS was removed. On 01/12/2021 at 2110 patient was asystole on the monitor. Patient was physically examined. Patient had no heart sounds or lung sounds. Patient had no pulse. Patient had no corneal reflex. Patient was pronounced . Date of 01/12/2021. Time of 2109 Immediate cause of : Septic shock secondary to pneumonia Other Diagnosis contributing to his immediate cause of : COPD exacerbation; acute kidney injury; possible lung mass Other significant conditions contribute to but not resulting in the underlying cause of : Severe protein calorie malnutrition Did tobacco contribute to : Yes
== END 2021-01-12 22:30 | DRG 720 ==
LOC: ED 05:48 → ICU 06:39
PROVIDERS: Admitting Provider Hospitalist; Emergency Provider Emergency Medicine; PCP Family Medicine; Visit Provider Hospitalist
DX: A41.9 Sepsis, unspecified organism (principal); J18.9 Pneumonia, unspecified organism; R65.21 Severe sepsis with septic shock; J44.1 Chronic obstructive pulmonary disease with (acute) exacerbation; E43 Unspecified severe protein-calorie malnutrition; Z68.1 Body mass index [BMI] 19.9 or less, adult; N17.9 Acute kidney failure, unspecified; E86.0 Dehydration; J96.01 Acute respiratory failure with hypoxia; E22.2 Syndrome of inappropriate secretion of antidiuretic hormone; Z66 Do not resuscitate; E87.2 Acidosis; J44.0 Chronic obstructive pulmonary disease with (acute) lower respiratory infection; R91.8 Other nonspecific abnormal finding of lung field; I46.9 Cardiac arrest, cause unspecified; F17.210 Nicotine dependence, cigarettes, uncomplicated; Z79.51 Long term (current) use of inhaled steroids; Z82.5 Family history of asthma and other chronic lower respiratory diseases
CPT/HCPCS: 36600; 71045; 80053; 82803; 82962; 83605; 83880; 84484; 85025; 85610; 85730; 87040; 87426; 87449; 93005; 94002; 94640; 99285; 99406; J7030; J7040; J7050; J2405